=== PATIENT | female | born 1995 | race Caucasian/White ===

== ENCOUNTER 2018-02-14 19:22 | Emergency (ER) | payer BC ==
--- NOTE | 2018-02-14 19:53 | UC ---
Respiratory Complaint HPI - HPI Summary HPI Summary: 23 yo female with mild URI symptoms x 1 day had to use her inhaler and noted it was requests a new inhaler no f/c no POST no myalgias ears are pooing mild congestion and cough currently not wheezing - History of Current Complaint Chief Complaint: UCRespiratory Stated Complaint: CONGESTION, SINUS PRESSURE Time Seen by Provider: 02/14/18 19:40 Hx Obtained From: Patient Hx Last Menstrual Period: pt states does not get a menses d/t control pills Onset/Duration: Gradual Onset, Lasting Hours Timing: Constant Severity Initially: Mild Severity Currently: Mild Pain Intensity: 0 Pain Scale Used: 0-10 Numeric Character: Cough: Nonproductive Aggravating Factors: Nothing Alleviating Factors: Bronchodilator Associated Signs And Symptoms: Positive: Wheezing, Nasal Congestion - Allergies/Home Medications Allergies/Adverse Reactions: Allergies Allergy/AdvReac Type Severity Reaction Status Date / Time Penicillins Allergy Intermediate Rash Verified 02/14/18 19:45 Home Medications: Home Medications Norethindrone-E.estradiol-Iron [Microgestin 24 Fe 1 mg-20 Mcg] 1 each PO DAILY 02/14/18 [History Confirmed 02/14/18] PMH/Surg Hx/FS Hx/Imm Hx Previously Healthy: Yes Respiratory History: Asthma - Surgical History Surgical History: None - Family History Known Family History: Positive: Hypertension - Social History Alcohol Use: Weekly Substance Use Type: None Smoking Status (MU): Never Smoked Tobacco Review of Systems Constitutional: Negative Skin: Negative Eyes: Negative ENT: Ear Ache, Sinus Congestion Respiratory: Cough Cardiovascular: Negative Gastrointestinal: Negative Genitourinary: Negative Motor: Negative Neurovascular: Negative Musculoskeletal: Negative Neurological: Negative Psychological: Negative Is Patient Immunocompromised?: No All Other Systems Reviewed And Are Negative: Yes Physical Exam Triage Information Reviewed: Yes Appearance: Well-Appearing, No Pain Distress, Well-Nourished Vital Signs: Initial Vital Signs Temp 98.7 F 02/14/18 19:34 Pulse 92 02/14/18 19:34 Resp 16 02/14/18 19:34 BP 129/75 02/14/18 19:34 Pulse Ox 100 02/14/18 19:34 Vital Signs Reviewed: Yes Eyes: Positive: Conjunctiva Clear ENT: Positive: Hearing grossly normal, TM bulging - slight/not red, Uvula midline. Negative: Nasal congestion, Nasal drainage, Tonsillar swelling, Tonsillar exudate, Trismus, Sinus tenderness Neck: Positive: Supple, Nontender Respiratory: Positive: Lungs clear, Normal breath sounds, No respiratory distress Cardiovascular: Positive: RRR, No Murmur Musculoskeletal: Positive: ROM Intact, No Edema Neurological: Positive: Alert Psychological Exam: Normal Skin Exam: Normal UC Diagnostic Evaluation - Laboratory O2 Sat by Pulse Oximetry: 100 Respiratory Course/Dx - Differential Dx/Diagnosis Provider Diagnoses: viral URI. serous otitis media. episode of wheezing by history Discharge - Discharge Plan Condition: Stable Disposition: HOME Prescriptions: Fluticasone NASAL SPRAY 50MCG* [Flonase NASAL SPRAY 50MCG*] 2 spray BOTH NARES DAILY #1 btl Patient Education Materials: Viral Syndrome (ED), Serous Otitis Media (ED) Referrals: No Primary Care Phys,NOPCP [Primary Care Provider] - Additional Instructions: recheck Worsening symptom, recheck for new symptoms recheck in 1 week if not better
[2018-02-14] MEDS ORDERED: Albuterol HFA INHALER* 8 gm MDI INH ONE (19:54)
== END 2018-02-14 20:09 | disposition home or self-care (01) ==
LOC: UCCORT 19:22
DX: Z88.0 Allergy status to penicillin (principal); J06.9 Acute upper respiratory infection, unspecified; H65.90 Unspecified nonsuppurative otitis media, unspecified ear; R06.2 Wheezing
CPT/HCPCS: 99202; A9270-GY; G0463

== ENCOUNTER 2018-08-20 14:03 | Emergency (ER) | payer BC ==
[2018-08-20 15:46] VITALS: BP 119/70
--- NOTE | 2018-08-20 16:25 | UC ---
Dental HPI - HPI Summary HPI Summary: Pt c/o sudden onset of right jaw pain. Pt denies recent dental work or trauma. Dental percussion tenderness. - History of Current Complaint Chief Complaint: UCGI Stated Complaint: DENTAL COMPLAINT Time Seen by Provider: 08/20/18 16:10 Hx Obtained From: Patient Hx Last Menstrual Period: 08/15/18 ?: No Onset/Duration: Sudden Onset, Lasting Days, Still Present Severity: Moderate - with jaw movement Pain Intensity: 0 Aggravating Factor(s): Other - movement Related History: Swelling - Allergies/Home Medications Allergies/Adverse Reactions: Allergies Allergy/AdvReac Type Severity Reaction Status Date / Time Penicillins Allergy Intermediate Rash Verified 08/20/18 15:46 PMH/Surg Hx/FS Hx/Imm Hx Previously Healthy: Yes - Surgical History Surgical History: Yes Surgery Procedure, Year, and Place: wisdom teeth - Family History Known Family History: Positive: Hypertension - Social History Occupation: Student - [employer] Lives: Dormitory/Roommates Alcohol Use: Weekly Alcohol Amount: 3 Substance Use Type: None Smoking Status (MU): Never Smoked Tobacco Have You Smoked in the Last Year: No - Immunization History Vaccination Up to Date: Yes Review of Systems Constitutional: Negative Skin: Negative Eyes: Negative ENT: Dental Pain - jaw Respiratory: Negative Cardiovascular: Negative Gastrointestinal: Negative Genitourinary: Negative Motor: Negative Neurovascular: Negative Musculoskeletal: Negative Neurological: Negative Psychological: Negative Is Patient Immunocompromised?: No All Other Systems Reviewed And Are Negative: Yes Physical Exam Triage Information Reviewed: Yes Appearance: Well-Appearing Vital Signs: Initial Vital Signs Temp 98.6 F 08/20/18 15:37 Pulse 87 08/20/18 15:37 Resp 20 08/20/18 15:37 BP 119/70 08/20/18 15:37 Pulse Ox 100 08/20/18 15:37 Vital Signs Reviewed: Yes Eye Exam: Normal ENT: Positive: Tonsillar swelling - cryptic tonsils with tonsil stones, Other - right jaw/cheek pain with palpation. Pt was given sour candy to try and when she ate it she stated that right jaw/salivary gland begn to feel intensely painful. Dental Exam: Normal Neck exam: Normal Respiratory Exam: Normal Cardiovascular Exam: Normal Musculoskeletal Exam: Normal Neurological Exam: Normal Psychological Exam: Normal Skin Exam: Normal Dental Complaint Course/Dx - Course Course Of Treatment: I discussed with the pt the need to f/u if symptosm worsen. - Differential Dx/Diagnosis Differential Diagnosis/Dx: Dental Abscess, Dental Caries, TMJ Syndrome Provider Diagnoses: Sialothiasis. jaw pain Discharge - Sign-Out/Discharge Documenting (check all that apply): Patient Departure All imaging exams completed and their final reports reviewed: No Studies - Discharge Plan Condition: Stable Disposition: HOME Referrals: [facility] [Outside] - If Needed No Primary Care Phys,NOPCP [Primary Care Provider] - Additional Instructions: Image result for sialolithiasis Sialolithiasis (also termed salivary calculi, or salivary stones), is a condition where a calcified mass or sialolith forms within a salivary gland, usually in the duct of the submandibular gland (also termed "Sumner's duct" Please drink plenty of water and eat "sour candy" . If symptoms do not improve or they worsen, then please return to clinic as needed. - Billing Disposition and Condition Condition: STABLE Disposition: Home
== END 2018-08-20 16:36 | disposition home or self-care (01) ==
LOC: UCCORT 14:03
DX: K11.5 Sialolithiasis (principal); R68.84 Jaw pain
CPT/HCPCS: 99211; G0463

== ENCOUNTER 2019-02-22 14:42 | Emergency (ER) | payer BC ==
[2019-02-22 15:18] VITALS: BP 123/72
--- NOTE | 2019-02-22 16:20 | UC ---
General HPI - HPI Summary HPI Summary: became ill 8 days ago with a sore throat followed by fever then head congestion and green discharge. + raspy voice and some ear pain. now having a cough with congestion, some wheezing and pain with breathing. no cp. + hx of asthma. - History of Current Complaint Chief Complaint: UCRespiratory Stated Complaint: SORE THROAT Time Seen by Provider: 02/22/19 16:11 Hx Obtained From: Patient Hx Last Menstrual Period: 02/01/19 Onset/Duration: Gradual Onset Timing: Constant Pain Intensity: 0 Associated Signs & Symptoms: Negative: Headache - Allergy/Home Medications Allergies/Adverse Reactions: Allergies Allergy/AdvReac Type Severity Reaction Status Date / Time Penicillins Allergy Intermediate Rash Verified 02/22/19 15:12 Home Medications: Home Medications Pseudoephedrine HCL ER TAB* [Sudafed 12 Hour*] 120 mg PO BID PRN 02/22/19 [ History Confirmed 02/22/19] PMH/Surg Hx/FS Hx/Imm Hx Respiratory History: Asthma - Surgical History Surgical History: Yes Surgery Procedure, Year, and Place: wisdom teeth - Family History Known Family History: Positive: Hypertension - Social History Occupation: Student Alcohol Use: Occasionally Alcohol Amount: 3 Substance Use Type: None Smoking Status (MU): Never Smoked Tobacco Have You Smoked in the Last Year: No - Immunization History Vaccination Up to Date: Yes Review of Systems All Other Systems Reviewed And Are Negative: Yes ENT: Positive: Sore Throat, Ear Ache, Sinus Congestion Respiratory: Positive: Shortness Of Breath, Cough Physical Exam Triage Information Reviewed: Yes Appearance: Well-Appearing Vital Signs: Initial Vital Signs Temp 97.6 F 02/22/19 15:13 Pulse 97 02/22/19 15:13 Resp 16 02/22/19 15:13 BP 123/72 02/22/19 15:13 Pulse Ox 100 02/22/19 15:13 Vital Signs Reviewed: Yes Eyes: Positive: Conjunctiva Clear ENT: Positive: Pharynx normal, Nasal congestion, TMs normal - L, TM red - R, Uvula midline. Negative: Nasal drainage, Trismus, Muffled voice, Hoarse voice, Sinus tenderness Neck: Positive: Supple, Nontender, No Lymphadenopathy Respiratory: Positive: Lungs clear, No respiratory distress, Decreased breath sounds Cardiovascular: Positive: RRR, No Murmur Abdomen Description: Positive: Nontender, No Organomegaly, Soft Bowel Sounds: Positive: Present Musculoskeletal: Positive: ROM Intact Neurological: Positive: Alert Psychological: Positive: Age Appropriate Behavior Skin Exam: Normal Course/Dx - Diagnoses Provider Diagnosis: URI (upper respiratory infection), Otitis media, Bronchitis Discharge - Sign-Out/Discharge Documenting (check all that apply): Patient Departure All imaging exams completed and their final reports reviewed: No Studies - Discharge Plan Condition: Stable Disposition: HOME Prescriptions: Albuterol HFA INHALER* [Ventolin HFA Inhaler*] 2 puff INH Q6H #1 mdi Amoxicillin/Clavulanate TAB* [Augmentin TAB 875*] 875 mg PO BID 10 Days #20 tab Patient Education Materials: Ear Infection (ED), Upper Respiratory Infection ( DC), Acute Bronchitis (ED) Referrals: NOEM[facility] PORTILLO [[email or web address], APPLICATION, OTHER] - 7 Days - Billing Disposition and Condition Condition: STABLE Disposition: Home - Attestation Statements Provider Attestation: Per institutional requirements, I have reviewed the chart, however, I was not consulted specifically or made aware of this patient by the midlevel provider. I did not personally evaluate, interact with , or disposition this patient.
== END 2019-02-22 16:40 | disposition home or self-care (01) ==
LOC: UCCORT 14:42
DX: J06.9 Acute upper respiratory infection, unspecified (principal); J40 Bronchitis, not specified as acute or chronic; H66.91 Otitis media, unspecified, right ear; Z88.0 Allergy status to penicillin
CPT/HCPCS: 99212; G0463